=== PATIENT | female | born 1940 | race Hispanic/Latino ===

== ENCOUNTER 2018-04-06 07:11 | Day surgery (SDC) | payer MEDICARE, BC ==
[2018-04-01 09:14] VITALS: BMI 42.0
[2018-04-06] MEDS ORDERED: Benzocaine/Butamben/Tetracai 14-2-2% TOP Spray TOP ONE (08:19)
[2018-04-06] MEDS ORDERED: Midazolam 2 MG/2 ML VIAL ONE (08:20)
[2018-04-06] MEDS ORDERED: Etomidate 20 mg/10ml Inj IV ONE (08:23)
[2018-04-06] MEDS ORDERED: ePHEDrine 50 mg/ml Inj ONE (08:43)
[2018-04-06] MEDS ORDERED: Phenylephrine 10 mg/ml Inj ONE (08:44)
[2018-04-06] MEDS ORDERED: Sodium Chloride 0.9% 1,000 ML IV SCH (09:45)
[2018-04-06 10:33] VITALS: BP 155/79; PULSE 75; RESP 18; TEMP 98.5; O2SAT 100
== END 2018-04-06 11:25 | disposition home or self-care (01) ==
LOC: ENDO 07:11
PROVIDERS: ATTEND Internal Medicine Gastroenterology
DX: K63.5 Polyp of colon (principal); K57.30 Diverticulosis of large intestine without perforation or abscess without bleeding; K64.8 Other hemorrhoids; K31.7 Polyp of stomach and duodenum; K29.50 Unspecified chronic gastritis without bleeding; K21.0 Gastro-esophageal reflux disease with esophagitis; R19.7 Diarrhea, unspecified; I48.91 Unspecified atrial fibrillation; E11.9 Type 2 diabetes mellitus without complications; Z79.4 Long term (current) use of insulin
CPT/HCPCS: 43239; 45380; 82948; 88305; 88312; 88342; J2250; J2370; J3010; J7030; J7040